=== PATIENT | female | born 1985 | race African-American/Black ===

== ENCOUNTER 2022-05-01 12:15 | Observation (INO) | payer MEDICAID ==
[~2022-05-01] VITALS: Ht 175.3 cm; Wt 104.3 kg
[2022-05-01] MEDS ORDERED: LACTATED RINGERS 1,000 ML IV SCH (13:00)
[2022-05-01 13:53] LABS: CLARITY URINE TURBID (CLEAR); COLOR URINE YELLOW (YELLOW); KETONES URINE TRACE (NEGATIVE); LEUKOCYTE ESTERASE URINE 3+ (NEGATIVE); NITRITE URINE NEGATIVE (NEGATIVE); OCCULT BLOOD URINE NEGATIVE (NEGATIVE); PROTEIN URINE NEGATIVE (NEGATIVE); SPECIFIC GRAVITY URINE 1.014 (1.005-1.030)
[2022-05-01] MEDS ORDERED: CEFAZOLIN 2,000 MG in DEXT 5% WATER 100 ML IV SCH (16:00)
[2022-05-01] MEDS ORDERED: METRONIDAZOLE 500MG TABLET PO NR (16:00)
[2022-05-16] MEDS ORDERED: IBUP-2030 PO (05:26)
== END 2022-05-01 17:10 | disposition home or self-care (01) ==
LOC: 8 EST LDRP 12:15
PROVIDERS: ADMIT Obstetrics & Gynecology; ATTEND Obstetrics & Gynecology
DX: O26.853 Spotting complicating pregnancy, third trimester (principal); O62.9 Abnormality of forces of labor, unspecified; Z3A.36 36 weeks gestation of pregnancy
CPT/HCPCS: 59025; 76805; 76818; 81003; 96361; 96365; J0690; J7060; J7120; 99281; G0378

== ENCOUNTER 2025-04-02 08:45 | Emergency (ER) | payer MEDICAID ==
[~2025-04-02] VITALS: Ht 175.3 cm; Wt 100.0 kg
[~2025-04-02 08:45] MED LIST: IBUP-2030 PO
[2025-04-02 08:49] VITALS: O2SAT 100
[2025-04-02] MEDS: KETOROLAC 30MG/ML VIAL IV ONE (10:16)
[2025-04-02 10:18] LABS: BASOPHILS % 0.5 % (0.0-2.0); DIFFERENTIAL COMMENT 0; EOSINOPHILS % 0.4 % (0.0-5.0); HEMATOCRIT. 36.7 % (36.0-48.0); HEMOGLOBIN. 11.9 g/dL (12.0-16.0); LYMPHOCYTES % 24.3 % (20.0-50.0); MEAN CORPUSCULAR HEMOGLOBIN 25.7 pg (28.0-32.0); MEAN CORPUSCULAR HGB CONC 32.4 g/dL (31.0-37.0); MEAN CORPUSCULAR VOLUME 79.4 fL (81.0-99.0); MEAN PLATELET VOLUME 9.9 fl (7.4-10.4); NEUTROPHILS % 60.8 % (40.0-76.0); PLATELET 150 x1000/uL (130-400); RED BLOOD CELL COUNT 4.62 mill/uL (4.2-5.4); RED CELL DISTRIBUTION WIDTH 16.7 % (11.6-14.6); WHITE BLOOD COUNT 4.5 x1000/uL (4.5-11.0)
[2025-04-02 10:30] LABS: INFLUENZA TYPE A Presumptive Negative (Pres. Neg.); INFLUENZA TYPE B Presumptive Negative (Pres. Neg.)
[2025-04-02 10:34] LABS: CARBON DIOXIDE 26 mEq/L (21-32); CHLORIDE 106 mEq/L (98-107); POTASSIUM 3.9 mEq/L (3.5-5.1); SODIUM 140 mEq/L (136-145)
[2025-04-02 10:35] LABS: CALCIUM 8.5 mg/dL (8.7-10.4)
[2025-04-02 10:40] LABS: CREATININE 0.8 mg/dL (0.6-1.0); GLUCOSE 94 mg/dL (70-105); UREA NITROGEN BLOOD 6 mg/dL (9-23)
[2025-04-02] MEDS ORDERED: AMOX1TAB16 MT (12:45)
[2025-04-02] MEDS ORDERED: IBUP-2029 MT (12:45)
[2025-04-02] MEDS ORDERED: FLUT9.9S BOTHNSTRLS (12:45)
[2025-04-02 13:02] VITALS: BP 115/84; PULSE 81; RESP 16; TEMP 37.3; O2SAT 100
[2025-04-02] MEDS ORDERED: IOHEXOL-300 100 ML BOTTLE ONE (14:53)
== END 2025-04-02 13:06 | disposition home or self-care (01) ==
LOC: ER 08:52
DX: B34.9 Viral infection, unspecified (principal); J32.9 Chronic sinusitis, unspecified; M54.2 Cervicalgia; Z79.899 Other long term (current) drug therapy; Z20.822 Contact with and (suspected) exposure to COVID-19
CPT/HCPCS: 80048; 81025; 85025; 87804 ×2; 36415; 70487; 96374; 99285; 87426; Q9967; J1885; Z7610 ×2